=== PATIENT | female | born 1965 | race Hispanic/Latino ===

== ENCOUNTER 2024-02-23 19:40 | Inpatient (IN) | payer MEDICAID, SELFPAY ==
[~2024-02-23 19:40] MED LIST: Iopamidol-370 76% 500 ML MDV (1 ML CHARGE) ONE
[2024-02-23] MEDS ORDERED: Ondansetron PF 4 MG/2 ML Vial ONE ×2 (19:53→21:08)
[2024-02-23 19:54] LABS: %Basophils 0.9 % (0.0-1.0); %Eosinophils 1.3 % (0.0-10.0); %Lymphocytes 32.2 % (21.0-51.0); %Monocytes 4.7 % (0.0-10.0); %Neutrophils 60.6 % (42.0-75.0); Hematocrit 28.2 % (36.0-47.0); Hemoglobin 9.6 g/dL (12.0-16.0); Mean Corpuscular Hemoglobin 28.4 pg (27.0-31.0); Mean Corpuscular Volume 83.4 fL (78.0-98.0); Mean Platelet Volume 10.2 fL (7.4-10.4); Platelet Count 299 10x3/uL (130-400); RBC Distribution Width 12.2 % (11.5-14.5); Red Blood Cell (RBC) Count 3.38 mill/uL (4.20-5.40)
[2024-02-23 19:57] LABS: Actual Bicarbonate (HCO3v) 20.8 mEq/L (22-28); Analyzer IN Cardio ER; Base Excess -3.3 mEq/L (-2.0 to +3.0); Calcium, Ionized (venous) 1.14 mmol/L (1.16-1.32); Chloride (VBG) 99 mmol/L (98-106); Hematocrit-VBG 31 % (36.0-47.0); Hemoglobin (Hb) 10.4 g/dL (11.7-16.0); Potassium (VBG) 4.06 mmol/L (3.70-5.30); Sodium 136 mmol/L (133-146); pH (venous) 7.408 (7.32-7.43)
[2024-02-23] MEDS ORDERED: Atropine Sulfate 1 mg/10 ml Syringe ONE (19:57)
[2024-02-23 20:17] LABS: ALT (SGPT) 13 U/L (8-55); AST (SGOT) 25 U/L (5-34); Albumin 3.4 g/dL (3.5-5.0); Alkaline Phosphatase 122 U/L (40-110); Anion Gap 17 mmol/L (10-20); BUN (Urea Nitrogen) 38 mg/dL (9.8-20.1); Bilirubin, Total 0.2 mg/dL (0.2-1.2); Calc. Creatinine Clearance 0 mL/min (70-130); Calcium 8.9 mg/dL (7.8-10.44); Carbon Dioxide 19 mmol/L (22-29); Chloride 102 mmol/L (98-107); Estimated GFR 40; Globulin 3.8 g/dL (2.4-3.5); Glucose 525 mg/dL (70-105); Lipase 24 U/L (8-78); Potassium 4.3 mmol/L (3.5-5.1); Protein, Total 7.2 g/dL (6.0-8.3); Sodium 134 mmol/L (136-145)
[2024-02-23 20:19] LABS: Troponin I Less than 0.010 ng/mL (< 0.028)
[2024-02-23] MEDS ORDERED: DOPamine 400 MG/D5W 250 ML 250 ML ONE (20:24)
[2024-02-23] MEDS ORDERED: fentaNYL 50 mcg/mL 1 mL Vial ONE (21:08)
[2024-02-23 21:43] LABS: Phosphorus 4.1 mg/dL (2.3-4.7)
[2024-02-23 21:45] LABS: Magnesium 2.2 mg/dL (1.6-2.6)
[2024-02-23 22:14] LABS: Hemoglobin A1c 11.8 % (4.0-6.0)
[2024-02-23] MEDS ORDERED: Insulin Lispro 100 UNIT/ML 10 ML VIAL SC PRN (22:35)
[2024-02-23] MEDS ORDERED: Glucagon 1 MG/ML KIT IM PRN (22:35)
[2024-02-23] MEDS ORDERED: Dextrose 5% in Water 1,000 ML IV PRN (22:35)
[2024-02-23] MEDS ORDERED: Electrolyte Replacement Protocol 1 EACH IVPB PRN (22:44)
[2024-02-23] MEDS ORDERED: Acetaminophen 650 MG Suppository PR PRN ×2 (22:44→22:45)
[2024-02-23] MEDS ORDERED: Lactated Ringer's 500 ML IV SCH (22:45)
[2024-02-23] MEDS: Insulin Lispro 100 UNIT/ML 10 ML VIAL SC PRN (22:54)
[2024-02-23] MEDS ORDERED: Acetaminophen 650 MG/20.3 ML UDCUP PO PRN (22:57)
[2024-02-23] MEDS: Sodium Chloride 0.9% 1,000 ML IV SCH (23:39)
[2024-02-23] MEDS: Insulin Regular, Human 100 UNIT/ML 10 ML VIAL IVP SCH (23:39)
[2024-02-23] MEDS: Acetaminophen 325 MG TAB PO SCH (23:40)
[2024-02-23] MEDS: hydrALAZINE 20 MG/ML VIAL SLOW IVP PRN (23:40)
[2024-02-24 00:20] LABS: Lactic Acid 3.11 mmol/L (0.5-2.2)
[2024-02-24] MEDS ORDERED: Promethazine HCl 12.5 MG in Sodium Chloride 0.9% 50 ML IVPB PRN (01:42)
[2024-02-24] MEDS: Insulin Lispro 100 UNIT/ML 10 ML VIAL SC PRN (02:29)
[2024-02-24] MEDS: Ondansetron PF 4 MG/2 ML Vial IVP PRN (02:29)
[2024-02-24] MEDS: Promethazine HCl 12.5 MG in Sodium Chloride 0.9% 100 ML IVPB PRN (02:37)
[2024-02-24 04:21] LABS: #Basophils 0.11 10x3/uL (0.0-0.2); #Eosinophils Less than 0.03 10x3/uL (0.0-0.7); %Basophils 0.7 % (0.0-1.0); %Lymphocytes 6.6 % (21.0-51.0); %Monocytes 3.8 % (0.0-10.0); %Neutrophils 88.3 % (42.0-75.0); Hematocrit 28.6 % (36.0-47.0); Hemoglobin 9.7 g/dL (12.0-16.0); Mean Corpuscular HGB CONC 33.9 g/dL (32.0-36.0); Mean Corpuscular Hemoglobin 28.4 pg (27.0-31.0); Mean Corpuscular Volume 83.6 fL (78.0-98.0); Mean Platelet Volume 10.4 fL (7.4-10.4); Platelet Count 392 10x3/uL (130-400); RBC Distribution Width 12.1 % (11.5-14.5); Red Blood Cell (RBC) Count 3.42 mill/uL (4.20-5.40)
[2024-02-24] MEDS: diphenhydrAMINE 50 MG/ML VIAL IVP SCH (04:44)
[2024-02-24 04:47] LABS: Anion Gap 18 mmol/L (10-20); BUN (Urea Nitrogen) 39 mg/dL (9.8-20.1); Calc. Creatinine Clearance 12 mL/min (70-130); Calcium 9.3 mg/dL (7.8-10.44); Carbon Dioxide 19 mmol/L (22-29); Cardiac Risk 4.3 (Less than 4.5); Chloride 104 mmol/L (98-107); Cholesterol 192 mg/dl (< 200 Desired); Estimated GFR 36; Glucose 454 mg/dL (70-105); HDL Cholesterol 45 mg/dL (>60 Neg Risk); LDL Cholesterol, Calculated 111 mg/dL; Potassium 3.4 mmol/L (3.5-5.1); Sodium 138 mmol/L (136-145); Triglycerides 179 mg/dL (Less than 150)
[2024-02-24] MEDS: DOPamine 400 MG/D5W 250 ML 250 ML IVPB SCH (04:50)
[2024-02-24] MEDS: Lorazepam 2 MG/ML VIAL SLOW IVP SCH (06:25)
[2024-02-24 07:51] LABS: Lactic Acid 2.17 mmol/L (0.5-2.2)
[2024-02-24] MEDS: Famotidine/PF 20 mg/2ml Vial SLOW IVP SCH (07:51)
[2024-02-24] MEDS: Potassium Chloride 20 MEQ in Premix 1 BAG IVPB SCH (07:51)
[2024-02-24] MEDS: Insulin Glargine 30 UNITS/0.3 ML VIAL SC SCH (07:52)
[2024-02-24] MEDS: hydrALAZINE 20 MG/ML VIAL SLOW IVP PRN (07:52)
[2024-02-24] MEDS ORDERED: Electrolyte Replacement Protocol FS PRN (08:00)
[2024-02-24] MEDS: Famotidine 20 MG TAB PO SCH (10:00)
[2024-02-24] MEDS: Ampicillin/Sulbactam 3 GM in Sodium Chloride 0.9% 100 ML IVPB SCH (10:23)
[2024-02-24] MEDS: FLU (Fluarix Triv) TS24-25(6MOS UP)/PF 45 MCG/0.5 ML Syringe IM ONE (10:25)
[2024-02-24] MEDS: Electrolyte Replacement Protocol 1 EACH FS ONE (10:26)
[2024-02-24 14:27] LABS: Potassium 4.8 mmol/L (3.5-5.1)
[2024-02-24] MEDS ORDERED: Lidocaine 1% (PF) 30 ML VIAL ONE (16:03)
[2024-02-24] MEDS ORDERED: Promethazine HCl 25 MG/ML VIAL ONE (16:53)
[2024-02-24] MEDS: Promethazine HCl 25 MG in Sodium Chloride 0.9% 100 ML IVPB PRN (21:52)
[2024-02-25] MEDS: Dextrose 50% Abboject 50 ML SYRINGE SLOW IVP PRN (01:25)
[2024-02-25 03:52] LABS: #Basophils 0.04 10x3/uL (0.0-0.2); #Eosinophils Less than 0.03 10x3/uL (0.0-0.7); %Basophils 0.3 % (0.0-1.0); %Lymphocytes 11.3 % (21.0-51.0); %Monocytes 5.5 % (0.0-10.0); %Neutrophils 82.4 % (42.0-75.0); Hematocrit 25.6 % (36.0-47.0); Hemoglobin 8.4 g/dL (12.0-16.0); Mean Corpuscular HGB CONC 32.8 g/dL (32.0-36.0); Mean Corpuscular Hemoglobin 28.8 pg (27.0-31.0); Mean Corpuscular Volume 87.7 fL (78.0-98.0); Mean Platelet Volume 9.8 fL (7.4-10.4); Platelet Count 274 10x3/uL (130-400); Red Blood Cell (RBC) Count 2.92 mill/uL (4.20-5.40)
[2024-02-25 04:41] LABS: Anion Gap 15 mmol/L (10-20); BUN (Urea Nitrogen) 33 mg/dL (9.8-20.1); Calc. Creatinine Clearance 33 mL/min (70-130); Calcium 8.4 mg/dL (7.8-10.44); Carbon Dioxide 21 mmol/L (22-29); Chloride 113 mmol/L (98-107); Estimated GFR 43; Glucose 133 mg/dL (70-105); Iron 33 ug/dL (50-170); Iron Binding Capacity, Total 315 mcg/dL (265-497); Potassium 3.7 mmol/L (3.5-5.1); Sodium 145 mmol/L (136-145)
[2024-02-25 04:56] LABS: Iron 33 ug/dL (50-170); Iron Binding Capacity, Total 320 mcg/dL (265-497)
[2024-02-25] MEDS: Insulin Glargine 30 UNITS/0.3 ML VIAL SC SCH (08:43)
[2024-02-25] MEDS ORDERED: DOBUTamine 500 mg/250 ml 500 MG in Premix 1 BAG IVPB SCH (09:45)
[2024-02-25] MEDS: Mag-Al Plus 1200/1200/120 MG (30 mL) UDCUP PO PRN (11:14)
[2024-02-25] MEDS: Lorazepam 2 MG/ML VIAL SLOW IVP SCH (21:26)
[2024-02-25] MEDS: Heparin 5,000 UNITS/ML VIAL SC SCH (21:27)
[2024-02-26] MEDS: diphenhydrAMINE 50 MG/ML VIAL IVP SCH (01:32)
[2024-02-26 05:26] LABS: #Basophils 0.05 10x3/uL (0.0-0.2); %Basophils 0.3 % (0.0-1.0); %Eosinophils 0.4 % (0.0-10.0); %Monocytes 6.5 % (0.0-10.0); %Neutrophils 69.3 % (42.0-75.0); Hematocrit 20.8 % (36.0-47.0); Hemoglobin 6.7 g/dL (12.0-16.0); Mean Corpuscular HGB CONC 32.2 g/dL (32.0-36.0); Mean Corpuscular Hemoglobin 28.3 pg (27.0-31.0); Mean Corpuscular Volume 87.8 fL (78.0-98.0); Platelet Count 263 10x3/uL (130-400); RBC Distribution Width 12.9 % (11.5-14.5); Red Blood Cell (RBC) Count 2.37 mill/uL (4.20-5.40)
[2024-02-26 05:53] LABS: Anion Gap 12 mmol/L (10-20); BUN (Urea Nitrogen) 24 mg/dL (9.8-20.1); Calc. Creatinine Clearance 46 mL/min (70-130); Carbon Dioxide 21 mmol/L (22-29); Chloride 114 mmol/L (98-107); Estimated GFR 66; Glucose 48 mg/dL (70-105); Potassium 3.9 mmol/L (3.5-5.1); Sodium 143 mmol/L (136-145)
[2024-02-26] MEDS ORDERED: Glucagon 1 MG/ML KIT IM PRN (07:47)
[2024-02-26] MEDS ORDERED: Sodium Chloride 0.45% 1,000 ML IV SCH (08:00)
[2024-02-26] MEDS: Pantoprazole DR 40 MG TAB PO SCH (08:07)
[2024-02-26 08:29] LABS: Hematocrit 23.6 % (36.0-47.0); Hemoglobin 7.5 g/dL (12.0-16.0); Mean Corpuscular HGB CONC 31.8 g/dL (32.0-36.0); Mean Corpuscular Hemoglobin 28.3 pg (27.0-31.0); Mean Corpuscular Volume 89.1 fL (78.0-98.0); Mean Platelet Volume 9.6 fL (7.4-10.4); Platelet Count 225 10x3/uL (130-400); RBC Distribution Width 12.9 % (11.5-14.5); Red Blood Cell (RBC) Count 2.65 mill/uL (4.20-5.40)
[2024-02-26] MEDS: Ampicillin/Sulbactam 3 GM in Sodium Chloride 0.9% 100 ML IVPB SCH (15:00)
[2024-02-27] MEDS: Dextrose 5 %-0.45 % NaCl 1,000 ML IV SCH (01:08)
[2024-02-27 05:42] LABS: #Basophils 0.06 10x3/uL (0.0-0.2); %Basophils 0.6 % (0.0-1.0); %Eosinophils 2.7 % (0.0-10.0); %Lymphocytes 20.4 % (21.0-51.0); %Neutrophils 69.9 % (42.0-75.0); Hematocrit 27.3 % (36.0-47.0); Hemoglobin 8.9 g/dL (12.0-16.0); Mean Corpuscular HGB CONC 32.6 g/dL (32.0-36.0); Mean Corpuscular Hemoglobin 28.6 pg (27.0-31.0); Mean Corpuscular Volume 87.8 fL (78.0-98.0); Platelet Count 296 10x3/uL (130-400); RBC Distribution Width 12.5 % (11.5-14.5); Red Blood Cell (RBC) Count 3.11 mill/uL (4.20-5.40)
[2024-02-27 06:10] LABS: Anion Gap 13 mmol/L (10-20); BUN (Urea Nitrogen) 13 mg/dL (9.8-20.1); Calc. Creatinine Clearance 48 mL/min (70-130); Calcium 8.2 mg/dL (7.8-10.44); Carbon Dioxide 23 mmol/L (22-29); Chloride 110 mmol/L (98-107); Estimated GFR 65; Glucose 95 mg/dL (70-105); Potassium 3.6 mmol/L (3.5-5.1); Sodium 142 mmol/L (136-145)
[2024-02-27] MEDS: Gabapentin 300 MG CAP PO PRN (08:16)
[2024-02-28 05:04] LABS: #Basophils 0.03 10x3/uL (0.0-0.2); %Basophils 0.4 % (0.0-1.0); %Eosinophils 5.5 % (0.0-10.0); %Lymphocytes 16.9 % (21.0-51.0); %Monocytes 6.6 % (0.0-10.0); %Neutrophils 70.4 % (42.0-75.0); Hematocrit 25.6 % (36.0-47.0); Hemoglobin 8.5 g/dL (12.0-16.0); Mean Corpuscular HGB CONC 33.2 g/dL (32.0-36.0); Mean Corpuscular Hemoglobin 28.1 pg (27.0-31.0); Mean Corpuscular Volume 84.5 fL (78.0-98.0); Platelet Count 276 10x3/uL (130-400); RBC Distribution Width 12.3 % (11.5-14.5); Red Blood Cell (RBC) Count 3.03 mill/uL (4.20-5.40)
[2024-02-28 05:35] LABS: Anion Gap 10 mmol/L (10-20); BUN (Urea Nitrogen) 8 mg/dL (9.8-20.1); Calc. Creatinine Clearance 56 mL/min (70-130); Calcium 7.7 mg/dL (7.8-10.44); Carbon Dioxide 22 mmol/L (22-29); Chloride 110 mmol/L (98-107); Estimated GFR 80; Glucose 143 mg/dL (70-105); Potassium 3.1 mmol/L (3.5-5.1); Sodium 139 mmol/L (136-145)
[2024-02-28] MEDS: Potassium Chloride 20 MEQ TAB PO SCH (08:52)
[2024-02-28 16:09] LABS: Legionella Urinary Ag Negative (Negative); Strep pneumo Urine Ag NEGATIVE (NEGATIVE)
[2024-02-28] MEDS: Insulin Lispro 100 UNIT/ML 10 ML VIAL SC PRN (16:41)
[2024-02-28] MEDS: Sodium Chloride 3% (15 ML) NEB NEB SCH (21:49)
[2024-02-28] MEDS: 1/2 NS w/Potassium 20 mEq 1,000 ML IV SCH (23:11)
[2024-02-29 05:31] LABS: #Basophils 0.04 10x3/uL (0.0-0.2); %Basophils 0.4 % (0.0-1.0); %Eosinophils 2.9 % (0.0-10.0); %Lymphocytes 10.9 % (21.0-51.0); %Monocytes 6.2 % (0.0-10.0); Hematocrit 27.3 % (36.0-47.0); Hemoglobin 9.2 g/dL (12.0-16.0); Mean Corpuscular HGB CONC 33.7 g/dL (32.0-36.0); Mean Corpuscular Hemoglobin 28.4 pg (27.0-31.0); Mean Corpuscular Volume 84.3 fL (78.0-98.0); Mean Platelet Volume 9.5 fL (7.4-10.4); Platelet Count 320 10x3/uL (130-400); RBC Distribution Width 12.4 % (11.5-14.5); Red Blood Cell (RBC) Count 3.24 mill/uL (4.20-5.40)
[2024-02-29 05:47] LABS: Anion Gap 13 mmol/L (10-20); BUN (Urea Nitrogen) 6 mg/dL (9.8-20.1); Calc. Creatinine Clearance 68 mL/min (70-130); Calcium 8.3 mg/dL (7.8-10.44); Carbon Dioxide 22 mmol/L (22-29); Chloride 108 mmol/L (98-107); Estimated GFR 99; Glucose 105 mg/dL (70-105); Potassium 3.6 mmol/L (3.5-5.1); Sodium 139 mmol/L (136-145)
[2024-02-29] MEDS: Sodium Chloride 3% (15 ML) NEB NEB PRN (10:45)
[2024-02-29] MEDS ORDERED: Iopamidol 370 76% 100 ML VIAL ONE (12:07)
[2024-02-29] MEDS ORDERED: CEFAZOLIN 2 GM VIAL ONE (12:54)
[2024-02-29] MEDS ORDERED: fentaNYL 50 mcg/mL 1 mL Vial ONE (14:09)
[2024-02-29] MEDS ORDERED: Ondansetron PF 4 MG/2 ML Vial ONE (14:09)
[2024-02-29] MEDS ORDERED: Dexamethasone 4 mg/ml Vial ONE (14:09)
[2024-02-29] MEDS ORDERED: Lidocaine 2% PF 100 mg/5 ml Syringe ONE (14:10)
[2024-02-29] MEDS ORDERED: PROPOFOL 20 ML ONE (14:10)
[2024-02-29] MEDS ORDERED: PHENYLEPHRINE-NS 100 MCG/ML 10 ML SYRINGE ONE (14:10)
[2024-02-29] MEDS ORDERED: ePHEDrine Sulfate 50 MG/10 ML VIAL ONE (14:58)
[2024-02-29] MEDS ORDERED: Heparin 10,000 UNITS/ 10 ML VIAL ONE (15:13)
[2024-02-29] MEDS ORDERED: Labetalol HCl 100 MG/20 ML VIAL ONE (16:22)
[2024-03-01 06:09] LABS: #Basophils Less than 0.03 10x3/uL (0.0-0.2); %Basophils 0.2 % (0.0-1.0); %Eosinophils 0.3 % (0.0-10.0); %Lymphocytes 11.5 % (21.0-51.0); %Monocytes 6.2 % (0.0-10.0); %Neutrophils 81.3 % (42.0-75.0); Hematocrit 25.7 % (36.0-47.0); Hemoglobin 8.6 g/dL (12.0-16.0); Mean Corpuscular HGB CONC 33.5 g/dL (32.0-36.0); Mean Corpuscular Hemoglobin 28.5 pg (27.0-31.0); Mean Corpuscular Volume 85.1 fL (78.0-98.0); Mean Platelet Volume 9.1 fL (7.4-10.4); Platelet Count 308 10x3/uL (130-400); RBC Distribution Width 12.8 % (11.5-14.5); Red Blood Cell (RBC) Count 3.02 mill/uL (4.20-5.40)
[2024-03-01 06:22] LABS: Anion Gap 14 mmol/L (10-20); BUN (Urea Nitrogen) 11 mg/dL (9.8-20.1); Calc. Creatinine Clearance 56 mL/min (70-130); Calcium 8.2 mg/dL (7.8-10.44); Carbon Dioxide 19 mmol/L (22-29); Chloride 106 mmol/L (98-107); Estimated GFR 80; Glucose 153 mg/dL (70-105); Sodium 135 mmol/L (136-145)
[2024-03-01 09:18] LABS: QuantiFERON-TB Gold Plus POSITIVE (Negative)
[2024-03-01 12:40] LABS: Reference Lab Name LABCORP
[2024-03-01] MEDS: Pyrazinamide 500 MG TAB PO SCH (16:29)
[2024-03-01] MEDS: Isoniazid 100 MG TAB PO SCH (16:30)
[2024-03-01] MEDS: Ethambutol HCl 400 MG TAB PO SCH (16:31)
[2024-03-01 16:36] LABS: HIV (1/2) Antibody/Antigen NONREACTIVE (NonReactive); HIV 1/2 INDEX 0.06 S/CO (<1.00)
[2024-03-01] MEDS: Rifampin 300 MG CAP PO SCH (18:05)
[2024-03-01] MEDS: Multivit, Therapeutic 1 TAB PO SCH (21:12)
[2024-03-02 05:32] LABS: #Basophils 0.04 10x3/uL (0.0-0.2); %Basophils 0.4 % (0.0-1.0); %Eosinophils 5.1 % (0.0-10.0); %Lymphocytes 19.5 % (21.0-51.0); %Monocytes 8.4 % (0.0-10.0); %Neutrophils 66.2 % (42.0-75.0); Hematocrit 24.8 % (36.0-47.0); Hemoglobin 8.1 g/dL (12.0-16.0); Mean Corpuscular HGB CONC 32.7 g/dL (32.0-36.0); Mean Corpuscular Hemoglobin 28.1 pg (27.0-31.0); Mean Corpuscular Volume 86.1 fL (78.0-98.0); Mean Platelet Volume 9.3 fL (7.4-10.4); Platelet Count 309 10x3/uL (130-400); Red Blood Cell (RBC) Count 2.88 mill/uL (4.20-5.40)
[2024-03-02 05:45] LABS: Anion Gap 11 mmol/L (10-20); BUN (Urea Nitrogen) 12 mg/dL (9.8-20.1); Calc. Creatinine Clearance 56 mL/min (70-130); Calcium 8.3 mg/dL (7.8-10.44); Carbon Dioxide 24 mmol/L (22-29); Chloride 106 mmol/L (98-107); Estimated GFR 80; Glucose 156 mg/dL (70-105); Sodium 137 mmol/L (136-145)
[2024-03-02] MEDS: Rifampin 300 MG CAP PO SCH (09:17)
[2024-03-02] MEDS: Isoniazid 100 MG TAB PO SCH (09:18)
[2024-03-02] MEDS: pyridOXINE 50 MG (B6) TAB PO SCH (09:18)
[2024-03-02] MEDS: Ethambutol HCl 400 MG TAB PO SCH (09:19)
[2024-03-02] MEDS: Pyrazinamide 500 MG TAB PO SCH (09:20)
[2024-03-02] MEDS: Acetaminophen 325 MG TAB PO PRN (09:34)
[2024-03-02] MEDS: Ondansetron ODT 4 MG TAB PO PRN (12:50)
[2024-03-02 23:42] VITALS: BMI 23.3
[2024-03-03 05:41] LABS: #Basophils 0.04 10x3/uL (0.0-0.2); %Basophils 0.6 % (0.0-1.0); %Eosinophils 5.1 % (0.0-10.0); %Lymphocytes 25.2 % (21.0-51.0); %Monocytes 9.5 % (0.0-10.0); %Neutrophils 58.4 % (42.0-75.0); Hematocrit 24.6 % (36.0-47.0); Hemoglobin 7.9 g/dL (12.0-16.0); Mean Corpuscular HGB CONC 32.1 g/dL (32.0-36.0); Mean Corpuscular Hemoglobin 27.9 pg (27.0-31.0); Mean Corpuscular Volume 86.9 fL (78.0-98.0); Mean Platelet Volume 9.3 fL (7.4-10.4); Platelet Count 327 10x3/uL (130-400); RBC Distribution Width 12.9 % (11.5-14.5); Red Blood Cell (RBC) Count 2.83 mill/uL (4.20-5.40)
[2024-03-03 05:52] LABS: Anion Gap 12 mmol/L (10-20); BUN (Urea Nitrogen) 8 mg/dL (9.8-20.1); Calc. Creatinine Clearance 62 mL/min (70-130); Calcium 8.6 mg/dL (7.8-10.44); Carbon Dioxide 27 mmol/L (22-29); Chloride 103 mmol/L (98-107); Estimated GFR 84; Glucose 154 mg/dL (70-105); Potassium 3.6 mmol/L (3.5-5.1); Sodium 138 mmol/L (136-145)
[2024-03-03 14:17] LABS: Hematocrit 25.2 % (36.0-47.0); Hemoglobin 8.1 g/dL (12.0-16.0); Mean Corpuscular HGB CONC 32.1 g/dL (32.0-36.0); Mean Corpuscular Hemoglobin 27.8 pg (27.0-31.0); Mean Corpuscular Volume 86.6 fL (78.0-98.0); Mean Platelet Volume 9.4 fL (7.4-10.4); Platelet Count 256 10x3/uL (130-400); RBC Distribution Width 12.8 % (11.5-14.5); Red Blood Cell (RBC) Count 2.91 mill/uL (4.20-5.40)
[2024-03-03] MEDS: Lisinopril 10 MG TAB PO SCH (14:39)
[2024-03-03] MEDS: Insulin Glargine 30 UNITS/0.3 ML VIAL SC SCH (22:28)
[2024-03-03] MEDS: Pantoprazole DR 40 MG TAB PO SCH (22:28)
[2024-03-04 05:15] LABS: #Basophils 0.06 10x3/uL (0.0-0.2); %Basophils 0.6 % (0.0-1.0); %Eosinophils 3.8 % (0.0-10.0); %Lymphocytes 18.4 % (21.0-51.0); %Monocytes 7.1 % (0.0-10.0); %Neutrophils 69.1 % (42.0-75.0); Hemoglobin 8.9 g/dL (12.0-16.0); Mean Corpuscular Hemoglobin 28.1 pg (27.0-31.0); Mean Corpuscular Volume 85.2 fL (78.0-98.0); Mean Platelet Volume 9.3 fL (7.4-10.4); Platelet Count 397 10x3/uL (130-400); RBC Distribution Width 12.6 % (11.5-14.5); Red Blood Cell (RBC) Count 3.17 mill/uL (4.20-5.40)
[2024-03-04 05:27] LABS: Anion Gap 11 mmol/L (10-20); BUN (Urea Nitrogen) 14 mg/dL (9.8-20.1); Calc. Creatinine Clearance 57 mL/min (70-130); Calcium 9.5 mg/dL (7.8-10.44); Carbon Dioxide 29 mmol/L (22-29); Chloride 98 mmol/L (98-107); Estimated GFR 81; Glucose 251 mg/dL (70-105); Sodium 134 mmol/L (136-145)
[2024-03-04 06:09] LABS: INR-International Normal Ratio 1.1
[2024-03-04 06:10] LABS: PTT 31.6 sec (22.9-36.1)
[2024-03-04] MEDS: Lisinopril 10 MG TAB PO SCH (09:43)
[2024-03-04] MEDS: Insulin Glargine 30 UNITS/0.3 ML VIAL SC SCH (21:59)
[2024-03-05 06:01] LABS: #Basophils 0.05 10x3/uL (0.0-0.2); %Basophils 0.6 % (0.0-1.0); %Eosinophils 3.2 % (0.0-10.0); %Lymphocytes 20.3 % (21.0-51.0); %Monocytes 6.6 % (0.0-10.0); %Neutrophils 68.1 % (42.0-75.0); Hematocrit 24.2 % (36.0-47.0); Hemoglobin 7.9 g/dL (12.0-16.0); Mean Corpuscular HGB CONC 32.6 g/dL (32.0-36.0); Mean Corpuscular Hemoglobin 27.9 pg (27.0-31.0); Mean Corpuscular Volume 85.5 fL (78.0-98.0); Platelet Count 344 10x3/uL (130-400); RBC Distribution Width 12.7 % (11.5-14.5); Red Blood Cell (RBC) Count 2.83 mill/uL (4.20-5.40)
[2024-03-05 06:14] LABS: ALT (SGPT) 20 U/L (8-55); AST (SGOT) 19 U/L (5-34); Albumin 2.5 g/dL (3.5-5.0); Alkaline Phosphatase 136 U/L (40-110); Anion Gap 13 mmol/L (10-20); BUN (Urea Nitrogen) 15 mg/dL (9.8-20.1); Bilirubin, Total 0.3 mg/dL (0.2-1.2); Calc. Creatinine Clearance 46 mL/min (70-130); Calcium 8.8 mg/dL (7.8-10.44); Carbon Dioxide 28 mmol/L (22-29); Chloride 97 mmol/L (98-107); Estimated GFR 63; Globulin 3.9 g/dL (2.4-3.5); Glucose 257 mg/dL (70-105); Potassium 3.7 mmol/L (3.5-5.1); Protein, Total 6.4 g/dL (6.0-8.3); Sodium 134 mmol/L (136-145)
[2024-03-06 05:56] LABS: #Basophils 0.07 10x3/uL (0.0-0.2); %Basophils 0.7 % (0.0-1.0); %Eosinophils 2.9 % (0.0-10.0); %Lymphocytes 19.2 % (21.0-51.0); %Monocytes 5.6 % (0.0-10.0); %Neutrophils 70.4 % (42.0-75.0); Hematocrit 26.1 % (36.0-47.0); Hemoglobin 8.5 g/dL (12.0-16.0); Mean Corpuscular HGB CONC 32.6 g/dL (32.0-36.0); Mean Corpuscular Hemoglobin 28.1 pg (27.0-31.0); Mean Corpuscular Volume 86.4 fL (78.0-98.0); Mean Platelet Volume 8.8 fL (7.4-10.4); Platelet Count 393 10x3/uL (130-400); RBC Distribution Width 12.9 % (11.5-14.5); Red Blood Cell (RBC) Count 3.02 mill/uL (4.20-5.40)
[2024-03-06 16:16] LABS: A. flavus Negative (Neg:<1:1); A. fumigatus Negative (Neg:<1:1); A. niger Negative (Neg:<1:1)
[2024-03-06] MEDS: Sodium Chloride 3% (15 ML) NEB NEB SCH (16:28)
[2024-03-06] MEDS: Ipratropium/Albuterol 3 ML NEB NEB PRN (16:28)
[2024-03-06 20:07] VITALS: BP 114/66; TEMP 98.6
== END 2024-03-07 18:00 | disposition home or self-care (01) | DRG 229 ==
LOC: ERS 19:40 → CCU 21:16 → T4-A 03-01 15:43
PROVIDERS: ADMIT Student in an Organized Health Care Education/Training Program; ATTEND Hospitalist
PROC: 02HK3JZ Insertion of Pacemaker Lead into Right Ventricle, Percutaneous Approach (ICD-10-PCS; 2024-02-24)
PROC: 5A1223Z Performance of Cardiac Pacing, Continuous (ICD-10-PCS; 2024-02-24)
PROC: 02HK3NZ Insertion of Intracardiac Pacemaker into Right Ventricle, Percutaneous Approach (ICD-10-PCS; principal; 2024-02-29)
DX: I44.2 Atrioventricular block, complete (principal); A15.0 Tuberculosis of lung; N17.9 Acute kidney failure, unspecified; E46 Unspecified protein-calorie malnutrition; K21.9 Gastro-esophageal reflux disease without esophagitis; I10 Essential (primary) hypertension; R91.1 Solitary pulmonary nodule; E11.65 Type 2 diabetes mellitus with hyperglycemia; E11.649 Type 2 diabetes mellitus with hypoglycemia without coma; R00.1 Bradycardia, unspecified; D64.9 Anemia, unspecified; Z79.899 Other long term (current) drug therapy; Z79.4 Long term (current) use of insulin; Z79.82 Long term (current) use of aspirin; Z68.22 Body mass index [BMI] 22.0-22.9, adult; I95.9 Hypotension, unspecified; R10.9 Unspecified abdominal pain; K59.00 Constipation, unspecified
CPT/HCPCS: 33208; 33210; 33274; 36415; 36416; 70450; 71045; 71260; 74177; 80048; 80053; 80061; 82010; 82274; 82728; 82805; 83036; 83540; 83550; 83605; 83690; 83735; 83880; 84100; 84145; 84484; 85025; 85610; 85730; 86141; 86480; 86606; 86635; 86850; 86900; 86901; 87081; 87116; 87206; 87389; 87449; 87899; 93005; 93010; 93306; 94640; 96365; 96366; 96375; 96376; C1760; C1769; C1786; C1894; J0295; J0360; J0461; J1100; J1200; J1265; J1644; J1815; J2003; J2060; J2405; J2550; J2704; J3010; J3480; J3490; J7030; J7042; J7620; J7999; Q0162; Q9967